=== PATIENT | female | born 1980 | race Caucasian/White ===

== ENCOUNTER 2017-09-25 21:24 | Emergency (ER) | payer MEDICAID ==
[~2017-09-25] VITALS: Ht 157.5 cm; Wt 50.8 kg
[2017-09-25] MEDS ORDERED: ACETAMINOPHEN 325MG TABLET PO ONE (22:30)
[2017-09-26 00:52] LABS: BASOPHILS % 0.7 % (0.0-2.0); EOSINOPHILS % 2.7 % (0.0-5.0); HEMATOCRIT. 35.3 % (36.0-48.0); HEMOGLOBIN. 11.9 g/dL (12.0-16.0); LYMPHOCYTES % 44.4 % (20.0-50.0); MEAN CORPUSCULAR VOLUME 89.2 fL (81.0-99.0); MEAN PLATELET VOLUME 8.2 fl (7.4-10.4); NEUTROPHILS % 44.2 % (40.0-76.0); PLATELET 265 x1000/uL (130-400); RED BLOOD CELL COUNT 3.96 mill/uL (4.2-5.4); RED CELL DISTRIBUTION WIDTH 13.9 % (11.6-14.6)
[2017-09-26 00:56] LABS: CHLORIDE 107 mEq/L (98-107)
[2017-09-26] MEDS ORDERED: ACETAMINOPHEN 325MG TABLET PO SCH (02:24)
[2017-09-26 02:33] LABS: CLARITY URINE CLEAR (CLEAR); COLOR URINE YELLOW (YELLOW); KETONES URINE TRACE (NEGATIVE); LEUKOCYTE ESTERASE URINE NEGATIVE (NEGATIVE); NITRITE URINE NEGATIVE (NEGATIVE); OCCULT BLOOD URINE 1+ (NEGATIVE); PH URINE 5.5 (4.5-8.0); PROTEIN URINE NEGATIVE (NEGATIVE); SPECIFIC GRAVITY URINE 1.035 (1.005-1.030); UROBILINOGEN URINE 0.2 E.U./dL (0.2-1.0)
[2017-09-26] MEDS ORDERED: AZITHROMYCIN 500 MG TABLET PO ONE (04:00)
[2017-09-26] MEDS ORDERED: CEFTRIAXONE SODIUM 250 MG/VIAL IM ONE (04:00)
[2017-09-26 04:50] VITALS: BP 121/69
[2017-09-28 08:16] LABS: CHLAMYDIA TRACHOMATIS NAA Negative (Negative); NEISSERIA GONORRHOEAE NAA Negative (Negative)
== END 2017-09-26 04:50 | disposition home or self-care (01) ==
LOC: ER 21:24
DX: N76.0 Acute vaginitis (principal); B96.89 Other specified bacterial agents as the cause of diseases classified elsewhere; N39.0 Urinary tract infection, site not specified
CPT/HCPCS: 36415; 76830; 76856; 80053; 81003; 81025; 83690; 85025; 87210; 87491; 87591; 99285; Z7610

== ENCOUNTER 2018-10-17 06:05 | Inpatient (IN) | payer MEDICAID ==
[~2018-10-17] VITALS: Ht 162.6 cm; Wt 67.1 kg
[2018-10-17] MEDS ORDERED: LACTATED RINGERS 1,000 ML IV SCH (06:48)
[2018-10-17] MEDS ORDERED: DEXT 5%/LR + PITOCIN 20UNITS/L 1,000 ML IV SCH ×2 (06:51→08:57)
[2018-10-17] MEDS ORDERED: CARBOPROST TROMETHAMINE 250 MCG/ML AMPUL IM PRN (07:00)
[2018-10-17] MEDS ORDERED: BUTORPHANOL TARTRATE 2 MG/ML VIAL IV PRN (07:00)
[2018-10-17] MEDS ORDERED: MISOPROSTOL 100MCG TABLET VG NR (07:00)
[2018-10-17] MEDS ORDERED: METHYLERGONOVINE MALEATE 0.2 MG/ML IM PRN (07:00)
[2018-10-17 07:21] LABS: BASOPHILS % 0.8 % (0.0-2.0); EOSINOPHILS % 1.4 % (0.0-5.0); HEMATOCRIT. 39.9 % (36.0-48.0); HEMOGLOBIN. 13.4 g/dL (12.0-16.0); LYMPHOCYTES % 28.4 % (20.0-50.0); MEAN CORPUSCULAR HEMOGLOBIN 31.3 pg (28.0-32.0); MEAN CORPUSCULAR VOLUME 93.2 fL (81.0-99.0); MEAN PLATELET VOLUME 9.6 fl (7.4-10.4); MONOCYTES % 7.9 % (2.0-8.0); NEUTROPHILS % 61.5 % (40.0-76.0); PLATELET 230 x1000/uL (130-400); RED BLOOD CELL COUNT 4.28 mill/uL (4.2-5.4); RED CELL DISTRIBUTION WIDTH 13.8 % (11.6-14.6)
[2018-10-17 07:28] LABS: INR 0.9; PARTIAL THROMBOPLASTIN TIME 27.8 sec (23.4-31.0); PROTHROMBIN TIME 9.5 sec (9.6-11.0)
[2018-10-17] MEDS ORDERED: LIDOCAINE HCL 1% 20ML VIAL (Pyxis) INJ INFIL SCH (08:00)
[2018-10-17 08:03] LABS: HEPATITIS B SURFACE ANTIGEN NEGATIVE
[2018-10-17] MEDS ORDERED: GLYCERIN/WITCH HAZEL LEAF MEDICATED PAD TOP PRN (09:00)
[2018-10-17] MEDS ORDERED: BENZOCAINE/LANOLIN/ALOE VERA SPRAY TOP PRN (09:00)
[2018-10-17] MEDS ORDERED: LANOLIN OINT 0.25 GM TUBE TOP PRN (09:00)
[2018-10-17] MEDS ORDERED: INFLUENZA VIRUS VACCINE(AFLURIA) 0.5ML SYR IM ONE (09:00)
[2018-10-17] MEDS ORDERED: TETANUS, DIPHTHERIA, PERTUSSIS VAC/PF 0.5ML (>7YR OLD) IM ONE (09:00)
[2018-10-17] MEDS ORDERED: HEMORRHOIDAL SUPP PR PRN (09:00)
[2018-10-17] MEDS ORDERED: DIPHENHYDRAMINE 25MG CAPSULE PO PRN (09:00)
[2018-10-17] MEDS ORDERED: IBUPROFEN 400MG TABLET PO PRN (09:00)
[2018-10-17] MEDS ORDERED: ACETAMINOPHEN WITH CODEINE 300/30MG TABLET PO PRN (09:00)
[2018-10-17] MEDS: IBUPROFEN 800MG TABLET PO PRN ×2 (10:25→20:26)
[2018-10-17 16:00] VITALS: BP 96/52
[2018-10-17 16:30] VITALS: BP 87/43
[2018-10-17 17:00] VITALS: BP 91/54
[2018-10-17 17:09] LABS: CLARITY URINE CLEAR (CLEAR); COLOR URINE YELLOW (YELLOW); KETONES URINE TRACE (NEGATIVE); LEUKOCYTE ESTERASE URINE NEGATIVE (NEGATIVE); NITRITE URINE NEGATIVE (NEGATIVE); OCCULT BLOOD URINE NEGATIVE (NEGATIVE); PH URINE 8.5 (4.5-8.0); PROTEIN URINE NEGATIVE (NEGATIVE); SPECIFIC GRAVITY URINE 1.013 (1.005-1.030); UROBILINOGEN URINE 0.2 E.U./dL (0.2-1.0)
[2018-10-17 17:20] LABS: *AMPHETAMINES SCREEN URINE NEGATIVE (NEGATIVE); *BARBITURATES SCREEN URINE NEGATIVE (NEGATIVE); *BENZODIAZEPINES SCREEN URINE NEGATIVE (NEGATIVE)
[2018-10-17 17:21] LABS: *COCAINE SCREEN URINE NEGATIVE (NEGATIVE); CANNABINOID URINE SCREEN NEGATIVE (NEGATIVE); OPIATES URINE SCREEN NEGATIVE (NEGATIVE); PHENCYCLIDINE URINE SCREEN NEGATIVE (NEGATIVE)
[2018-10-17 17:22] LABS: METHADONE URINE SCREEN NEGATIVE (NEGATIVE)
[2018-10-17 20:05] VITALS: BP 98/50
[2018-10-17] MEDS: SIMETHICONE 80MG TABLET CHEW PO SCH (20:56)
[2018-10-17] MEDS: DOCUSATE SODIUM 100MG CAPSULE PO SCH (20:57)
[2018-10-18 04:00] VITALS: BP 95/52
[2018-10-18 06:04] LABS: BASOPHILS % 0.6 % (0.0-2.0); EOSINOPHILS % 1.2 % (0.0-5.0); HEMATOCRIT. 34.7 % (36.0-48.0); HEMOGLOBIN. 11.9 g/dL (12.0-16.0); MEAN CORPUSCULAR HEMOGLOBIN 31.7 pg (28.0-32.0); MEAN CORPUSCULAR VOLUME 92.6 fL (81.0-99.0); MEAN PLATELET VOLUME 9.7 fl (7.4-10.4); NEUTROPHILS % 67.2 % (40.0-76.0); PLATELET 210 x1000/uL (130-400); RED BLOOD CELL COUNT 3.75 mill/uL (4.2-5.4); RED CELL DISTRIBUTION WIDTH 13.5 % (11.6-14.6)
[2018-10-18 07:58] VITALS: BP 107/58
[2018-10-18] MEDS: SIMETHICONE 80MG TABLET CHEW PO SCH ×3 (09:28→21:14)
[2018-10-18] MEDS: PRENATAL VIT/FE FUMARATE/FA TABLET PO SCH (09:28)
[2018-10-18] MEDS: FERROUS SULFATE 325MG TABLET PO SCH ×2 (09:29→18:47)
[2018-10-18 14:00] VITALS: BP 107/58
[2018-10-18] MEDS: IBUPROFEN 800MG TABLET PO PRN (16:40)
[2018-10-18 20:00] VITALS: BP 97/51
[2018-10-18] MEDS: DOCUSATE SODIUM 100MG CAPSULE PO SCH (21:14)
[2018-10-19 04:00] VITALS: BP 98/52
[2018-10-19 08:44] VITALS: BP 101/50
[2018-10-19] MEDS: IBUPROFEN 800MG TABLET PO PRN (09:35)
[2018-10-19] MEDS: PRENATAL VIT/FE FUMARATE/FA TABLET PO SCH (09:35)
[2018-10-19] MEDS: FERROUS SULFATE 325MG TABLET PO SCH (09:35)
[2018-10-19] MEDS: SIMETHICONE 80MG TABLET CHEW PO SCH (09:35)
== END 2018-10-19 11:10 | disposition home or self-care (01) | DRG 560 ==
LOC: OBSVTOIN 06:05 → 8 EST LDRP 06:05 → 8EST 14:30
PROVIDERS: ADMIT Obstetrics & Gynecology; ATTEND Obstetrics & Gynecology
PROC: 10E0XZZ Delivery of Products of Conception, External Approach (ICD-10-PCS; principal; 2018-10-17)
PROC: 0UQGXZZ Repair Vagina, External Approach (ICD-10-PCS; 2018-10-17)
DX: O71.4 Obstetric high vaginal laceration alone (principal); Z37.0 Single live birth; Z3A.39 39 weeks gestation of pregnancy
CPT/HCPCS: 36415; 80305; 84030; 86592; 86703; 86762; 86850; 86900; 87340; 90715; 99281; G0378; J2590; J3490; J7120